=== PATIENT | male | born 1950 | race American Indian/Alaskan Native ===

== ENCOUNTER 2016-03-20 18:52 | Emergency (ER) | payer MEDICARE, OTHER ==
[2016-03-20 19:59] LABS: Basophils % (Auto) 0.6 % (0.0-1.8); Eosinophils % (Auto) 2.4 % (0.0-4.3); Hemoglobin 13.8 gm/dl (11.8-15.2); Mean Corpuscular HGB Conc 31 % (32-34); Mean Corpuscular Hemoglobin 26 pg (28-32); Mean Corpuscular Volume 83 fl (84-94); Platelet Count 212 K/mm3 (140-440); Red Blood Count 5.29 M/mm3 (3.65-5.03); Red Cell Distribution Width 15.9 % (13.2-15.2); White Blood Count 8.5 K/mm3 (4.5-11.0)
[2016-03-20 20:10] LABS: INR 1.06 (0.87-1.13)
[2016-03-20 20:11] LABS: Partial Thromboplastin Time 28.8 Sec. (24.2-36.6)
[2016-03-20 20:18] LABS: Anion Gap 17 mmol/L; BUN/Creatinine Ratio 10.83; Blood Urea Nitrogen 13 mg/dL (9-20); Calcium 8.9 mg/dL (8.4-10.2); Carbon Dioxide 23 mmol/L (22-30); Chloride 101.8 mmol/L (98-107); Glucose 97 mg/dL (75-100); Sodium 138 mmol/L (137-145)
[2016-03-20 20:30] LABS: Bilirubin,Urine NEG (Negative); Blood,Urine SM (Negative); Ketones,Urine NEG (Negative); Leukocyte Esterase,Urine NEG (Negative); Mucus,Urine FEW /HPF; Nitrite,Urine NEG (Negative); Protein,Urine <15 mg/dL mg/dL (Negative); Urobilinogen,Urine < 2.0 mg/dL (<2.0); WBC,Urine < 1.0 /HPF (0.0-6.0)
--- NOTE | 2016-03-21 06:24 | Emergency Department Report ---
HPI - General Chief Complaint: GI Bleed Time Seen by Provider: 03/21/16 06:05 - HPI HPI: This is a 65-year-old Afro-[place] male who presents to the emergency department with complaint of rectal bleeding. Patient says that he has a history of hemorrhoids but the bleeding has been much more heavy than when it has occurred in the past. He does admit to some harder stools and some heavy straining while working in the yard. Patient also presents with very elevated blood pressure and does have a history of hypertension but has not been taking the medications as he has been out. The patient says he used to deal with the [facility] but he has been having issues with his insurance and has been unable to get appointments. He denies any abdominal pain, back pain, rectal pain, nausea, vomiting or fever. He has had 3 episodes of this bleeding with bowel movements since 3 PM yesterday. The blood is dark red. He has not taken anything for symptoms prior to presentation. No recent travel or sick contacts at home. ED Past Medical Hx - Past Medical History Hx Hypertension: Yes - Surgical History Additional Surgical History: varicous vein repair - Social History Smoking Status: Never Smoker Substance Use Type: None - Medications Home Medications: Home Medications Medication Instructions Recorded Confirmed Last Taken Type Amlodipine Besylate/Benazepril 1 each PO QDAY #30 capsule 03/21/16 Unknown Rx [Amlodipine-Benazepril 10-20 mg] cloNIDine [Catapres] 0.1 mg PO BID #60 tablet 03/21/16 Unknown Rx ED Review of Systems ROS: Stated complaint: RECTAL BLEED Other details as noted in HPI Comment: All other systems reviewed and negative Constitutional: denies: chills, fever Eyes: denies: eye pain, eye discharge, vision change ENT: denies: ear pain, throat pain Respiratory: denies: cough, shortness of breath, wheezing Cardiovascular: denies: chest pain, palpitations Gastrointestinal: other (rectal bleeding). denies: abdominal pain, nausea, diarrhea, constipation, melena Genitourinary: denies: urgency, dysuria Musculoskeletal: denies: back pain, joint swelling, arthralgia Skin: denies: rash, lesions Neurological: denies: headache, weakness, paresthesias Physical Exam - Physical Exam Vital Signs: Vital Signs 03/20/16 03/21/16 19:16 03:05 Temperature 98.3 F 97.5 F L Pulse Rate 94 H 65 Respiratory 18 18 Rate Blood Pressure 197/114 Blood Pressure 164/74 [Left] O2 Sat by Pulse 100 99 Oximetry Physical Exam: GENERAL: The patient is well-developed well-nourished. HEENT: Normocephalic. Atraumatic. Extraocular motions are intact. Patient has moist mucous membranes. Pupils equal reactive to light bilaterally. NECK: Supple. Trachea is midline. CHEST/LUNGS: Clear to auscultation. There is no respiratory distress noted. HEART/CARDIOVASCULAR: Regular. There is no tachycardia. There is no gallop rub or murmur. ABDOMEN: Abdomen is soft, nontender. Patient has normal bowel sounds. There is no abdominal distention. SKIN: There is no rash. There is no diaphoresis. NEURO: The patient is awake, alert, and oriented. The patient is cooperative. The patient has no focal neurologic deficits. The patient has normal speech. MUSCULOSKELETAL: There is no tenderness or deformity. There is no limitation range of motion. There is no evidence of acute injury. RECTAL: No hemorrhoids or lesions seen externally. Very mild gross blood seen with digital rectal exam. Positive stool for guaiac ED Course Vital Signs 03/20/16 03/21/16 19:16 03:05 Temperature 98.3 F 97.5 F L Pulse Rate 94 H 65 Respiratory 18 18 Rate Blood Pressure 197/114 Blood Pressure 164/74 [Left] O2 Sat by Pulse 100 99 Oximetry ED Medical Decision Making - Lab Data Result diagrams: 03/20/16 19:30 03/20/16 19:30 - Medical Decision Making 65-year-old male presents to the emergency department with heavy rectal bleeding that occurs with recent bowel movements. Patient's vital signs were stable throughout his ED course but he did present with some very elevated blood pressure. It came down to a more reasonable level without any antihypertensives. Patient has not been compliant with 3 of his blood pressure medications as he has been having trouble seeing a primary care doctor. I written him for a one-month supply of all 3 of his blood pressure medications and we discussed dietary changes for blood pressure control. I also believe that blood pressure control would help the rectal bleeding. Physical examination was done and there are no obvious hemorrhoids or rectal lesions seen. There is some very mild gross blood seen that is positive on guaiac testing. However patient's labs are unremarkable including a hemoglobin of about 13.5. Patient has not had any rectal bleeding for the past couple hours since he last had a bowel movement. He denies any pain. I believe the patient is safe for discharge home at this time. He will return to the ER with any return of his symptoms are uncontrolled rectal bleeding or any acute distress. He was given referrals for primary care and gastroenterology and understands he may need a colonoscopy in the near future to rule out malignancy. - Differential Diagnosis hemorrhoids, malignancy, diverticulosis, ulcers Critical Care Time: No Critical care attestation.: If time is entered above; I have spent that time in minutes in the direct care of this critically ill patient, excluding procedure time. ED Disposition Clinical Impression: Rectal bleeding Hypertension Qualifiers: Hypertension type: essential hypertension Qualified Code(s): I10 - Essential ( primary) hypertension Disposition: DISCHARGED TO HOME OR SELFCARE Is pt being admited?: No Condition: Good Instructions: Hypertension (ED) Additional Instructions: Please follow-up with a primary care doctor in the next few days. I have also given you a referral for a local greenhouse staff, Dr. Jarquin, in order to follow-up regarding your rectal bleeding as you may need a colonoscopy in the near future. Return to the emergency department with any worsening of her symptoms, uncontrolled rectal bleeding, or any acute distress. Try to stay away from foods that are high in salt and caffeinated products to help with your blood pressure. I have restarted your blood pressure medications. Keep a blood pressure log. Prescriptions: Amlodipine Besylate/Benazepril [Amlodipine-Benazepril 10-20 mg] 1 each PO QDAY # 30 capsule cloNIDine [Catapres] 0.1 mg PO BID #60 tablet Referrals: PRIMARY MD RENUKA [Primary Care Provider] - 3-5 Days JANETH JARQUIN MD [Staff Physician] - 3-5 Days ROMY MEEHAN MD [Staff Physician] - 3-5 Days [facility] [Outside] - 3-5 Days Time of Disposition: 06:29
[2016-03-21] MEDS ORDERED: CATAPRES PO ONE (06:29)
[2016-03-21 07:11] VITALS: BP 162/84
== END 2016-03-21 07:11 | disposition home or self-care (01) ==
LOC: ED 18:52
DX: K62.5 Hemorrhage of anus and rectum (principal); I10 Essential (primary) hypertension
CPT/HCPCS: 36415; 80048; 81001; 85025; 85610; 85730; 86850; 86900; 86901; 99283

== ENCOUNTER 2016-09-08 09:35 | Outpatient (CLI) | payer MEDICARE, OTHER ==
[2016-09-08 10:20] LABS: Blood Urea Nitrogen 12 mg/dL (9-20)
--- NOTE | 2016-09-08 11:25 | Cat Scan Report ---
CT HEAD WITH AND WITHOUT CONTRAST History: Pituitary tumor, low TSH levels. Technique: Contiguous 2.[address] images before and after IV contrast. Comparison: None. Findings: The brain parenchyma attenuation is coffman-white interface are within normal limits. There is no evidence for hemorrhage, mass or extra-axial fluid collection. Normal ventricular size. No chronic infarct. Bilateral basal ganglia calcifications are noted. The posterior fossa is unremarkable. No abnormal enhancement following IV contrast. Reconstructed images of the sella turcica demonstrate a normal appearing hypothalamus and pituitary gland on CT. There is no obvious or large pituitary mass. Impression: Essentially normal CT head with and without contrast. There is certainly no large sellar mass. If there is concern for a pituitary microadenoma, MRI with and without contrast is the most sensitive study at this facility.
--- NOTE | 2016-09-08 14:28 | Ultrasound Report ---
ULTRASOUND THYROID INDICATION: Low TSH, pituitary tumor. COMPARISON: None similar. FINDINGS: Longitudinal and transverse grayscale and color-flow sonographic evaluation of the thyroid suggests a homogenous isthmus measuring 0.36 cm AP. Normal thyroid vascularity. RIGHT LOBE: Estimated at 5.8 x 2.6 x 1.9 cm and suggests few small heterogeneous nodules, at least 2 dominant inferiorly estimated at 1.5 x 1.3 x 1 cm as on images 9-10 with possible peripheral echogenicity/calcification while the other solid thyroid nodule posteroinferiorly may measure 1.3 x 0.6 x 1.3 cm as on image 7. LEFT LOBE: Also appears diffusely heterogeneous and grossly estimated at 6.4 x 2.6 x 2.2 cm with a focal 2.8 x 1 x 2 cm heterogeneous nodule anterosuperiorly possible as on image 28. CONCLUSION: Heterogeneous thyroid gland with few bilateral nodules noted, as described. Please also correlate clinically, with laboratory values, prior relevant imaging if available or with [id number] thyroid exam, as appropriate. Thank you for the opportunity to participate in this patient's care.
== END 2016-09-08 09:36 | disposition home or self-care (01) ==
LOC: CT 09:35
PROVIDERS: ATTEND Internal Medicine
DX: D35.2 Benign neoplasm of pituitary gland (principal); E04.2 Nontoxic multinodular goiter; G23.8 Other specified degenerative diseases of basal ganglia; R94.6 Abnormal results of thyroid function studies
CPT/HCPCS: 36415; 70470; 76536; 82565; 84520; Q9967

== ENCOUNTER 2018-06-04 08:51 | Outpatient (CLI) | payer MEDICARE, OTHER ==
[2018-06-04 10:16] LABS: Chol/HDL Ratio 2.87 %
== END 2018-06-04 08:52 | disposition home or self-care (01) ==
LOC: LAB 08:51
PROVIDERS: ATTEND Internal Medicine
DX: E11.9 Type 2 diabetes mellitus without complications (principal); E78.5 Hyperlipidemia, unspecified; I10 Essential (primary) hypertension
CPT/HCPCS: 36415; 80061; 83036

== ENCOUNTER 2018-11-07 09:34 | Outpatient (CLI) | payer MEDICARE, OTHER ==
[2018-11-07 10:48] LABS: Chol/HDL Ratio 2.73 %
== END 2018-11-07 09:35 | disposition home or self-care (01) ==
LOC: LAB 09:34
PROVIDERS: ATTEND Internal Medicine
DX: E78.5 Hyperlipidemia, unspecified (principal); E11.9 Type 2 diabetes mellitus without complications; E05.80 Other thyrotoxicosis without thyrotoxic crisis or storm; R39.16 Straining to void; I10 Essential (primary) hypertension
CPT/HCPCS: 36415; 80061; 83036; 84153; 84443